=== PATIENT | male | born 1955 | race African-American/Black ===

== ENCOUNTER 2018-01-24 11:40 | Inpatient (IN) | payer MEDICARE, MEDICAID ==
[~2018-01-24] VITALS: Ht 177.8 cm; Wt 130.0 kg
[2018-01-24] MEDS ORDERED: ASPIRIN 81 MG TABLET CHEW PO ONE (12:30)
[2018-01-24 14:04] LABS: BASOPHILS # (AUTO) 0.01 x10^3/uL (0-0.1); BASOPHILS % (AUTO) 0 % (0-1); EOSINOPHILS # (AUTO) 0.39 x10^3/uL (0-0.4); EOSINOPHILS % (AUTO) 7 % (1-7); LYMPHOCYTES # (AUTO) 1.39 x10^3/uL (1-3.4); LYMPHOCYTES % (AUTO) 24 % (22-44); MD NO; MEAN CORPUSCULAR HEMOGLOBIN 29.4 pg (27.5-34.5); MEAN CORPUSCULAR HGB CONC 33.4 g/dL (33.2-36.2); MEAN PLATELET VOLUME 8.2 fL (7.4-10.4); MONOCYTES # (AUTO) 0.54 x10^3/uL (0.2-0.8); MONOCYTES % (AUTO) 9 % (2-9); NEUTROPHILS # (AUTO) 3.59 x10^3/uL (1.8-6.8); NEUTROPHILS % (AUTO) 61 % (42-75); PLATELET COUNT 257 x10^3/uL (130-400); RED BLOOD COUNT 5.08 x10^6/uL (4.38-5.82); RED CELL DISTRIBUTION WIDTH 16.3 % (9.4-14.8)
[2018-01-24 14:13] LABS: ALBUMIN 3.6 g/dL (3.4-5.0); ANION GAP 7 mmol/L (5-15); CALCIUM 9.1 mg/dL (8.5-10.1); CHLORIDE 110 mmol/L (98-107); CREATININE 1.61 mg/dL (0.7-1.3)
[2018-01-24] MEDS ORDERED: CEFTRIAXONE PMX 1GM/50ML 50 ML IVPB ONE (15:00)
[2018-01-24] MEDS ORDERED: SODIUM CHLORIDE FLUSH 10ML SYR IVF ONE (15:00)
[2018-01-24] MEDS ORDERED: CEFTRIAXONE PMX 1GM/50ML 50 ML ONE (15:06)
[2018-01-24] MEDS ORDERED: OMEG1CAP2 PO (15:32)
[2018-01-24] MEDS ORDERED: ASPI-621 PO (15:32)
[2018-01-24] MEDS ORDERED: HYDR-3341 PO (15:32)
[2018-01-24] MEDS ORDERED: FURO-93 PO (15:32)
[2018-01-24] MEDS ORDERED: ASPI-515 PO (15:32)
[2018-01-24] MEDS ORDERED: LOSA1TAB25 PO (15:32)
[2018-01-24] MEDS ORDERED: POTA10TA6 PO (15:32)
[2018-01-24] MEDS ORDERED: CARV25TA12 PO (15:32)
[2018-01-24] MEDS ORDERED: DOCU-131 PO (15:32)
[2018-01-24] MEDS ORDERED: LACT10SO28 PO (15:32)
[2018-01-24] MEDS ORDERED: ACET600C5 PO (15:32)
[2018-01-24] MEDS ORDERED: AMLO10TA6 PO (15:32)
[2018-01-24] MEDS ORDERED: PHARMACY MAY ADJ FOR RENAL FX MC PRN (16:30)
[2018-01-24] MEDS ORDERED: hydrALAzine 20 MG/ML, 1ML IVPush PRN (16:30)
[2018-01-24] MEDS ORDERED: HYDROCORTISONE CRM 0.025, 30GM RC PRN (16:30)
[2018-01-24] MEDS ORDERED: ONDANSETRON 2MG/ML, 2ML IVPush PRN (16:30)
[2018-01-24] MEDS: INSULIN LISPRO 100 UNITS/ML, PEN SQ-INSULIN SCH ×2 (16:30→21:00)
[2018-01-24] MEDS ORDERED: ACETAMINOPHEN 325 MG TABLET PO PRN (16:30)
[2018-01-24] MEDS ORDERED: ONDANSETRON ODT 4 MG PO PRN (16:30)
[2018-01-24 16:55] LABS: HCT (SEDRATE) 44.7 % (39.2-51.8)
[2018-01-24] MEDS ORDERED: SODIUM CHLORIDE FLUSH 10ML SYR IVF PRN (17:00)
[2018-01-24 17:13] LABS: HEMOGLOBIN A1C 6.9 % (4.2-6.3)
[2018-01-24] MEDS: CEFAZOLIN PMX 2GM/50ML 50 ML IVPB SCH (17:37)
[2018-01-24] MEDS: CARVEDILOL 25 MG TABLET PO SCH (19:12)
[2018-01-24 20:00] VITALS: BP 196/107
[2018-01-24] MEDS: OMEGA-3/FISH OIL CAPSULE PO SCH (21:15)
[2018-01-24] MEDS: FUROSEMIDE 20 MG TABLET PO SCH (21:15)
[2018-01-24] MEDS: LACTULOSE 10 GM/15 ML UDC PO SCH (21:16)
[2018-01-24] MEDS: HEPARIN 5,000 UNITS/ML, 1ML SQ SCH (21:17)
[2018-01-24 21:27] VITALS: BP 171/103
[2018-01-24] MEDS: ACETYLCYSTEINE 600 MG CAPSULE PO SCH (21:34)
[2018-01-24] MEDS: DIPHENHYDRAMINE 25 MG CAPSULE PO PRN (23:31)
[2018-01-25] MEDS: CEFAZOLIN PMX 2GM/50ML 50 ML IVPB SCH ×3 (00:51→16:07)
[2018-01-25 02:00] VITALS: BP 145/76
[2018-01-25] MEDS: HEPARIN 5,000 UNITS/ML, 1ML SQ SCH ×2 (06:13→16:08)
[2018-01-25 06:15] LABS: BASOPHILS # (AUTO) 0.02 x10^3/uL (0-0.1); BASOPHILS % (AUTO) 0 % (0-1); EOSINOPHILS # (AUTO) 0.41 x10^3/uL (0-0.4); EOSINOPHILS % (AUTO) 8 % (1-7); LYMPHOCYTES # (AUTO) 1.26 x10^3/uL (1-3.4); LYMPHOCYTES % (AUTO) 24 % (22-44); MD NO; MEAN CORPUSCULAR HEMOGLOBIN 29.7 pg (27.5-34.5); MEAN CORPUSCULAR HGB CONC 33.8 g/dL (33.2-36.2); MEAN CORPUSCULAR VOLUME 87.8 fL (81-97); MEAN PLATELET VOLUME 8.1 fL (7.4-10.4); MONOCYTES # (AUTO) 0.56 x10^3/uL (0.2-0.8); MONOCYTES % (AUTO) 11 % (2-9); NEUTROPHILS # (AUTO) 3.11 x10^3/uL (1.8-6.8); NEUTROPHILS % (AUTO) 58 % (42-75); PLATELET COUNT 249 x10^3/uL (130-400); RED BLOOD COUNT 4.88 x10^6/uL (4.38-5.82); RED CELL DISTRIBUTION WIDTH 16.6 % (9.4-14.8)
[2018-01-25 06:26] LABS: CHLORIDE 108 mmol/L (98-107)
[2018-01-25 06:27] LABS: ANION GAP 8 mmol/L (5-15); CALCIUM 9.1 mg/dL (8.5-10.1); CREATININE 1.63 mg/dL (0.7-1.3)
[2018-01-25] MEDS: INSULIN LISPRO 100 UNITS/ML, PEN SQ-INSULIN SCH ×4 (07:00→21:00)
[2018-01-25 07:44] VITALS: BP 166/104
[2018-01-25] MEDS: ACETYLCYSTEINE 600 MG CAPSULE PO SCH ×2 (08:35→21:43)
[2018-01-25] MEDS: LACTULOSE 10 GM/15 ML UDC PO SCH ×3 (08:35→21:43)
[2018-01-25] MEDS: FUROSEMIDE 20 MG TABLET PO SCH ×2 (08:36→21:43)
[2018-01-25] MEDS: AMLODIPINE 10 MG TAB PO SCH (08:36)
[2018-01-25] MEDS: OMEGA-3/FISH OIL CAPSULE PO SCH ×2 (08:36→21:44)
[2018-01-25] MEDS: ASPIRIN 81 MG TABLET EC PO SCH (08:36)
[2018-01-25] MEDS: DOCUSATE 100 MG CAPSULE PO SCH (08:37)
[2018-01-25] MEDS: CARVEDILOL 25 MG TABLET PO SCH ×2 (08:38→21:44)
[2018-01-25] MEDS: POTASSIUM CHLORIDE 10 MEQ TABLET.ER PO SCH (08:39)
[2018-01-25] MEDS ORDERED: HYDROCHLOROTHIAZIDE 12.5 MG CAPSULE PO SCH (09:00)
[2018-01-25] MEDS ORDERED: LOSARTAN 50MG TABLET PO SCH (09:00)
[2018-01-25] MEDS ORDERED: TEMPLATE NON-FORMULARY MED. (Losartan/Hydrochlorothiazide** (Losartan-Hctz 100-12.5 Mg Tab PO SCH (09:00)
[2018-01-25] MEDS ORDERED: HYDROCHLOROTHIAZIDE 12.5 MG CAPSULE PO ONE (10:30)
[2018-01-25] MEDS: HYDROcodone/APAP 5/325 TABLET PO PRN (12:36)
[2018-01-25] MEDS: DIPHENHYDRAMINE 25 MG CAPSULE PO PRN (12:37)
[2018-01-25 13:26] VITALS: BP 138/73
[2018-01-25 20:00] VITALS: BP 134/81
[2018-01-26 00:30] VITALS: BP 137/81
[2018-01-26] MEDS: HEPARIN 5,000 UNITS/ML, 1ML SQ SCH ×3 (01:15→17:00)
[2018-01-26] MEDS: CEFAZOLIN PMX 2GM/50ML 50 ML IVPB SCH ×3 (01:16→17:02)
[2018-01-26 05:51] LABS: BASOPHILS # (AUTO) 0.01 x10^3/uL (0-0.1); BASOPHILS % (AUTO) 0 % (0-1); EOSINOPHILS # (AUTO) 0.42 x10^3/uL (0-0.4); EOSINOPHILS % (AUTO) 8 % (1-7); LYMPHOCYTES # (AUTO) 1.53 x10^3/uL (1-3.4); LYMPHOCYTES % (AUTO) 30 % (22-44); MD NO; MEAN CORPUSCULAR HEMOGLOBIN 29.2 pg (27.5-34.5); MEAN CORPUSCULAR HGB CONC 33.4 g/dL (33.2-36.2); MEAN CORPUSCULAR VOLUME 87.5 fL (81-97); MEAN PLATELET VOLUME 8.3 fL (7.4-10.4); MONOCYTES % (AUTO) 14 % (2-9); NEUTROPHILS # (AUTO) 2.42 x10^3/uL (1.8-6.8); NEUTROPHILS % (AUTO) 48 % (42-75); PLATELET COUNT 241 x10^3/uL (130-400); RED BLOOD COUNT 5.04 x10^6/uL (4.38-5.82); RED CELL DISTRIBUTION WIDTH 16.7 % (9.4-14.8)
[2018-01-26 06:00] LABS: ANION GAP 9 mmol/L (5-15); CALCIUM 9.2 mg/dL (8.5-10.1); CHLORIDE 103 mmol/L (98-107); CREATININE 1.69 mg/dL (0.7-1.3)
[2018-01-26] MEDS: INSULIN LISPRO 100 UNITS/ML, PEN SQ-INSULIN SCH ×4 (07:00→21:29)
[2018-01-26 07:16] VITALS: BP 140/86
[2018-01-26] MEDS: LACTULOSE 10 GM/15 ML UDC PO SCH ×3 (08:48→21:26)
[2018-01-26] MEDS: ASPIRIN 81 MG TABLET EC PO SCH (08:48)
[2018-01-26] MEDS: FUROSEMIDE 20 MG TABLET PO SCH ×2 (08:48→21:25)
[2018-01-26] MEDS: HYDROcodone/APAP 5/325 TABLET PO PRN ×2 (08:48→17:00)
[2018-01-26] MEDS: CARVEDILOL 25 MG TABLET PO SCH ×2 (08:49→21:26)
[2018-01-26] MEDS: LOSARTAN 50MG TABLET PO SCH (08:49)
[2018-01-26] MEDS: POTASSIUM CHLORIDE 10 MEQ TABLET.ER PO SCH (08:49)
[2018-01-26] MEDS: AMLODIPINE 10 MG TAB PO SCH (08:49)
[2018-01-26] MEDS: OMEGA-3/FISH OIL CAPSULE PO SCH ×2 (08:50→21:24)
[2018-01-26] MEDS: DIPHENHYDRAMINE 25 MG CAPSULE PO PRN (08:50)
[2018-01-26] MEDS: HYDROCHLOROTHIAZIDE 25 MG TABLET PO SCH (08:50)
[2018-01-26] MEDS: DOCUSATE 100 MG CAPSULE PO SCH (08:51)
[2018-01-26] MEDS: ACETYLCYSTEINE 600 MG CAPSULE PO SCH ×2 (10:43→21:21)
[2018-01-26 13:00] VITALS: BP 151/89
[2018-01-26 18:30] VITALS: BP 138/82
[2018-01-27 00:13] VITALS: BP 134/81
[2018-01-27] MEDS: HEPARIN 5,000 UNITS/ML, 1ML SQ SCH ×3 (01:21→17:00)
[2018-01-27] MEDS: CEFAZOLIN PMX 2GM/50ML 50 ML IVPB SCH ×4 (01:21→17:47)
[2018-01-27 05:14] LABS: CHLORIDE 103 mmol/L (98-107)
[2018-01-27 05:21] LABS: ANION GAP 10 mmol/L (5-15); C-REACTIVE PROTEIN, QUANT 0.45 mg/dL (0.02-0.49); CALCIUM 9.4 mg/dL (8.5-10.1); CREATININE 1.57 mg/dL (0.7-1.3)
[2018-01-27 06:31] VITALS: BP 125/81
[2018-01-27 06:55] LABS: HCT (SEDRATE) 44.1 % (39.2-51.8)
[2018-01-27] MEDS: INSULIN LISPRO 100 UNITS/ML, PEN SQ-INSULIN SCH ×4 (07:00→20:24)
[2018-01-27] MEDS: HYDROcodone/APAP 5/325 TABLET PO PRN (09:39)
[2018-01-27] MEDS: LOSARTAN 50MG TABLET PO SCH (09:40)
[2018-01-27] MEDS: AMLODIPINE 10 MG TAB PO SCH (09:40)
[2018-01-27] MEDS: HYDROCHLOROTHIAZIDE 25 MG TABLET PO SCH (09:40)
[2018-01-27] MEDS: OMEGA-3/FISH OIL CAPSULE PO SCH ×2 (09:40→20:22)
[2018-01-27] MEDS: DOCUSATE 100 MG CAPSULE PO SCH (09:41)
[2018-01-27] MEDS: CARVEDILOL 25 MG TABLET PO SCH ×2 (09:41→20:23)
[2018-01-27] MEDS: POTASSIUM CHLORIDE 10 MEQ TABLET.ER PO SCH (09:41)
[2018-01-27] MEDS: ASPIRIN 81 MG TABLET EC PO SCH (09:42)
[2018-01-27] MEDS: FUROSEMIDE 20 MG TABLET PO SCH ×2 (09:47→20:22)
[2018-01-27] MEDS: LACTULOSE 10 GM/15 ML UDC PO SCH ×3 (09:48→20:22)
[2018-01-27 12:18] VITALS: BP 135/89
[2018-01-27 12:45] VITALS: BP 110/68
[2018-01-27] MEDS: ACETYLCYSTEINE 600 MG CAPSULE PO SCH ×2 (12:46→20:23)
[2018-01-27 19:26] VITALS: BP 132/67
[2018-01-28] MEDS: HEPARIN 5,000 UNITS/ML, 1ML SQ SCH ×2 (01:35→10:14)
[2018-01-28] MEDS: CEFAZOLIN PMX 2GM/50ML 50 ML IVPB SCH ×2 (01:35→10:12)
[2018-01-28 01:37] VITALS: BP 153/94
[2018-01-28 07:45] VITALS: BP 137/80
[2018-01-28] MEDS: INSULIN LISPRO 100 UNITS/ML, PEN SQ-INSULIN SCH ×2 (07:56→11:00)
[2018-01-28] MEDS: LACTULOSE 10 GM/15 ML UDC PO SCH (10:12)
[2018-01-28] MEDS: CARVEDILOL 25 MG TABLET PO SCH (10:12)
[2018-01-28] MEDS: POTASSIUM CHLORIDE 10 MEQ TABLET.ER PO SCH (10:12)
[2018-01-28] MEDS: DOCUSATE 100 MG CAPSULE PO SCH (10:12)
[2018-01-28] MEDS: AMLODIPINE 10 MG TAB PO SCH (10:12)
[2018-01-28] MEDS: ASPIRIN 81 MG TABLET EC PO SCH (10:13)
[2018-01-28] MEDS: HYDROCHLOROTHIAZIDE 25 MG TABLET PO SCH (10:13)
[2018-01-28] MEDS: LOSARTAN 50MG TABLET PO SCH (10:13)
[2018-01-28] MEDS: FUROSEMIDE 20 MG TABLET PO SCH (10:13)
[2018-01-28] MEDS: OMEGA-3/FISH OIL CAPSULE PO SCH (10:14)
[2018-01-28] MEDS: ACETYLCYSTEINE 600 MG CAPSULE PO SCH (10:17)
[2018-01-28] MEDS ORDERED: CEPH-368 PO (10:38)
[2018-01-28] MEDS ORDERED: HYDR25TA6 PO (10:38)
[2018-01-28] MEDS ORDERED: HYDR30CR7 RC (10:38)
[2018-01-28 12:34] VITALS: BP 111/71
== END 2018-01-28 12:45 | disposition home or self-care (01) | DRG 603 ==
LOC: ED 15:23 → 3NE 15:28 → ED 15:36
PROVIDERS: ADMIT Hospitalist; ATTEND Hospitalist
DX: L03.115 Cellulitis of right lower limb (principal); I13.0 Hypertensive heart and chronic kidney disease with heart failure and stage 1 through stage 4 chronic kidney disease, or unspecified chronic kidney disease; I50.30 Unspecified diastolic (congestive) heart failure; Z68.41 Body mass index [BMI] 40.0-44.9, adult; L03.116 Cellulitis of left lower limb; L29.9 Pruritus, unspecified; N18.3 Chronic kidney disease, stage 3 (moderate); E11.22 Type 2 diabetes mellitus with diabetic chronic kidney disease; Z96.659 Presence of unspecified artificial knee joint; G47.33 Obstructive sleep apnea (adult) (pediatric); J44.9 Chronic obstructive pulmonary disease, unspecified; Z82.49 Family history of ischemic heart disease and other diseases of the circulatory system; Z87.891 Personal history of nicotine dependence; E66.01 Morbid (severe) obesity due to excess calories
CPT/HCPCS: 36415; 80048; 82040; 82962; 83036; 83605; 83690; 83880; 85025; 85651; 86140; 87040; 93970; 94660; 96365; G0378; J0690; J0696; J1644; J0360; Q0163

== ENCOUNTER 2018-02-02 16:29 | Emergency (ER) | payer MEDICARE, MEDICAID ==
[~2018-02-02] VITALS: Ht 177.8 cm; Wt 129.1 kg
[~2018-02-02 16:29] MED LIST: ACET600C5 PO; AMLO10TA6 PO; ASPI-515 PO; ASPI-621 PO; CARV25TA12 PO; CEPH-368 PO; DOCU-131 PO; FURO-93 PO; HYDR-3341 PO; HYDR25TA6 PO; HYDR30CR7 RC; LACT10SO28 PO; LOSA1TAB25 PO; OMEG1CAP2 PO; POTA10TA6 PO
[2018-02-02 17:26] LABS: ALBUMIN 3.7 g/dL (3.4-5.0); ANION GAP 9 mmol/L (5-15); CHLORIDE 105 mmol/L (98-107)
[2018-02-02 17:29] LABS: ALANINE AMINOTRANSFERASE 57 U/L (12-78); ALKALINE PHOSPHATASE 82 U/L (45-117); BILIRUBIN,TOTAL 0.6 mg/dL (0.2-1.0); CREATININE 1.58 mg/dL (0.7-1.3); TOTAL PROTEIN 7.7 g/dL (6.4-8.2)
[2018-02-02 17:39] LABS: BASOPHILS # (AUTO) 0.05 x10^3/uL (0-0.1); BASOPHILS % (AUTO) 1 % (0-1); EOSINOPHILS # (AUTO) 0.37 x10^3/uL (0-0.4); EOSINOPHILS % (AUTO) 7 % (1-7); LYMPHOCYTES # (AUTO) 1.63 x10^3/uL (1-3.4); LYMPHOCYTES % (AUTO) 30 % (22-44); MD NO; MEAN CORPUSCULAR HEMOGLOBIN 29.4 pg (27.5-34.5); MEAN CORPUSCULAR HGB CONC 33.7 g/dL (33.2-36.2); MEAN CORPUSCULAR VOLUME 87.4 fL (81-97); MEAN PLATELET VOLUME 8.4 fL (7.4-10.4); MONOCYTES % (AUTO) 11 % (2-9); NEUTROPHILS # (AUTO) 2.75 x10^3/uL (1.8-6.8); NEUTROPHILS % (AUTO) 51 % (42-75); PLATELET COUNT 265 x10^3/uL (130-400); RED BLOOD COUNT 5.05 x10^6/uL (4.38-5.82); RED CELL DISTRIBUTION WIDTH 15.5 % (9.4-14.8)
[2018-02-02] MEDS ORDERED: LIDOCAINE-MPF 1%, 5ML ONE (18:09)
[2018-02-02 18:59] VITALS: BP 190/106
[2018-02-02 20:36] LABS: SYN CELLS COUNTED 40
== END 2018-02-02 21:39 | disposition home or self-care (01) ==
LOC: ED 18:51
DX: M25.561 Pain in right knee (principal); I10 Essential (primary) hypertension
CPT/HCPCS: 20610; 36415; 80053; 82945; 83615; 84157; 84560; 85025; 85810; 87070; 87205; 89050; 89060; 99284